=== PATIENT | male | born 2000 | race Hispanic/Latino ===

== ENCOUNTER 2019-04-06 00:12 | Emergency (ER) | payer MEDICAID, OTHER ==
[2019-04-06] MEDS ORDERED: LIDOCAINE HCL-MPF 1% 2ML VIAL ONE (00:41)
[2019-04-06] MEDS ORDERED: LIDOCAINE HCL 1% 20 ML VIAL ONE (00:41)
[2019-04-06] MEDS ORDERED: HYDROCODONE/ACETAMINOPHEN 10/325 MG TAB ONE (00:41)
[2019-04-06] MEDS ORDERED: CEFTRIAXONE SODIUM 1 GM ONE (00:42)
== END 2019-04-06 01:57 | disposition home or self-care (01) ==
LOC: EDH 00:12
DX: L02.414 Cutaneous abscess of left upper limb (principal)
CPT/HCPCS: 10060; 96372; 99283; J0696; J3490